=== PATIENT | male | born 1985 ===

== ENCOUNTER 2022-07-30 11:48 | Outpatient (CLI) | payer OTHER ==
[~2022-07-30 11:48] MED LIST: MEDROLPACK PO
== END 2022-07-30 11:49 | disposition home or self-care (01) ==
LOC: LAB 11:48
PROVIDERS: ATTEND Obstetrics & Gynecology
DX: Z20.828 Contact with and (suspected) exposure to other viral communicable diseases (principal); Z20.818 Contact with and (suspected) exposure to other bacterial communicable diseases